=== PATIENT | female | born 2000 | race Caucasian/White ===

== ENCOUNTER → 2018-04-24 08:46 | Outpatient (CLI) | payer OTHER, SELFPAY ==
[2018-04-24 09:14] LABS: Influenza A and B by PCR Rapid Negative (Negative)
== END ==
PROVIDERS: Family Provider Family Medicine; PCP Family Medicine; Visit Provider Physician Assistant
DX: R68.89 Other general symptoms and signs (principal)
CPT/HCPCS: 87400

== ENCOUNTER → 2022-03-14 12:44 | Outpatient (CLI) | payer OTHER, MEDICAID, SELFPAY ==
[2022-03-19 06:06] LABS: HSV 1 DNA Negative (Negative); HSV 2 DNA Negative (Negative)
== END ==
PROVIDERS: Family Provider Family Medicine; PCP Family Medicine; Referring Provider Family Medicine; Visit Provider Family Medicine
DX: Z11.3 Encounter for screening for infections with a predominantly sexual mode of transmission (principal)
CPT/HCPCS: 36415; 87529

== ENCOUNTER 2022-06-06 21:50 | Emergency (ER) | payer OTHER, MEDICAID, SELFPAY ==
[2022-06-06 21:55] VITALS: BP 117/70; PULSE 85; RESP 20; TEMP 37; O2SAT 99; BMI 19.7
--- NOTE | 2022-06-06 22:40 | DI.RAD.S_ITS ---
PROCEDURE: XR CHEST 1V INDICATIONS: chest pain TECHNIQUE: One view of the chest was acquired. COMPARISON: None. FINDINGS: Surgical changes and devices: None. Lungs and pleura: Lungs are clear. No pleural effusions or pneumothorax. Mediastinum: Mediastinal contours appear normal. Heart size is normal. Bones and chest wall: No suspicious bony lesions. Overlying soft tissues appear unremarkable. IMPRESSION: 1. No acute cardiopulmonary disease. Dictated by: Ramon Hernandez M.D. on 06/06/2022 at 23:16 Approved by: Ramon Hernandez M.D. on 06/06/2022 at 23:17
--- NOTE | 2022-06-06 22:44 | ED_ITS ---
HPI - Arrhythmia/Palpitations General Chief Complaint: Anxiety Stated Complaint: Potential bat bite, Covid shot t-3, Palpitations Time Seen by Provider: 06/06/22 22:25 Source: patient Mode of arrival: Ambulatory History of Present Illness HPI narrative: 21-year-old female nonsmoker with history of depression and frequent heavy cannabis use presents with a chief complaint of feeling anxious with nausea and palpitations. She states that she is been working with her primary care provider to stop using cannabis and stopped cold turkey on Thursday and symptoms seemed to ramp up in the aftermath. She does have access to Ativan 0.5 mg p.o. which she has taken with some relief. She denies any nausea or vomiting. She has no fever or chills. She has no chest pain or shortness of breath. She does state also, that she had a bat flying in her room in the dark and is unsure if it bit her. She has never had a rabies series before Related Data Home Medications Medication Instructions Recorded Confirmed citalopram 10 mg tablet 10 mg PO QDAY ##0 01/09/16 03/11/22 ibuprofen 400 mg tablet 400 mg PO TID ##0 01/09/16 03/11/22 Previous Rx's Medication Instructions Recorded benzonatate 100 mg capsule 100 mg PO TID PRN cough #30 caps 04/24/18 (Shayna Quiñonez) ipratropium 20 mcg-albuterol 100 1 puff inhalation QID PRN wheezing 04/24/18 mcg/actuation mist for inhalation or shortness of breath #4 grams (Combivent Respimat) Allergies Allergy/AdvReac Type Severity Reaction Status Date / Time No Known Allergies Allergy Uncoded 03/11/22 14:05 Review of Systems Review of Systems Narrative: GENERAL: See HPI HEENT: Denies sinus pain, ear pain, sore throat, difficulty swallowing, dizziness. RESPIRATORY: See HPI CARDIOVASCULAR: See HPI GASTROINTESTINAL: Denies nausea, vomiting, abdominal pain, diarrhea, constipation, melena. : Denies dysuria, frequency, incontinence, hematuria, urinary retention. MUSCULOSKELETAL: denies weakness, joint pain, or bony pain SKIN: Denies rash, skin lesions, or other NEUROLOGIC: Denies weakness, headache, numbness, change in speech, confusion, seizures, incoordination. PSYCHIATRIC: See HPI 12 point review of systems is negative except for those stated above Patient History Social History Smoking Status: Never smoker Smoking Status: Never smoker Exam Narrative Exam Narrative: GENERAL: [21] year old patient appears stated age. Well-developed patient, in mild distress. HEAD: Atraumatic. Normocephalic. EYES: Pupils equal round and reactive. Extraocular motions intact. No scleral icterus. No injection or drainage. ENT: Nose without bleeding, purulent drainage. Throat without erythema, tonsillar hypertrophy or exudate. Airway patent. NECK: Trachea midline. Non tender CARDIOVASCULAR: Regular rate and rhythm without murmurs, gallops, or rubs. RESPIRATORY: Clear to auscultation. Breath sounds equal bilaterally. No wheezes, rales, or rhonchi. GASTROINTESTINAL: Abdomen soft, non-tender, nondistended. EXTREMITIES: No edema or joint tenderness. BACK: Nontender without deformity or crepitance. No flank tenderness. NEURO: AOx3. SKIN: No rash or erythema of visible areas Initial Vital Signs Initial Vital Signs: Vital Signs Temperature 98.6 F 06/06/22 21:55 Pulse Rate 85 06/06/22 21:55 Respiratory Rate 20 06/06/22 21:55 Blood Pressure 117/70 06/06/22 21:55 Pulse Oximetry 99 06/06/22 21:55 Oxygen Delivery Method Room Air 06/06/22 21:55 Course Orders Ordered: ED Orders 06/06/22 22:10 Urine Microscopic Stat 06/06/22 22:20 Complete Blood Count AUTO DIFF Stat Comprehensive Metabolic Panel Stat Lipase Stat Magnesium Stat PTT Partial Thromboplastin [place] Stat Prothrombin Time INR Stat Troponin & CK Cardiac Panel Stat 06/06/22 22:40 XR chest 1V Stat COVID19 -Nasal RAPID Stat EKG-12 Lead Stat 06/07/22 00:35 CRP [C-Reactive Protein Quant] Stat ESR [Erythrocyte Sedimentation Rate] Stat Discontinued Medications Aspirin (Aspirin 81 Mg Chew Tab) 324 mg PO NOW ONE Stop: 06/06/22 22:41 Last Admin: 06/06/22 23:16 Dose: Not Given Documented By: ABBY Sodium Chloride (Normal Saline 0.9%) 1,000 mls @ 1,000 mls/hr IV BOLUS ONE Stop: 06/07/22 02:18 Last Admin: 06/07/22 01:46 Dose: 1,000 mls/hr Documented By: PIA Lorazepam (Lorazepam 2 Mg/Ml Inj) 0.5 mg IV NOW ONE Stop: 06/07/22 01:20 Last Admin: 06/07/22 01:46 Dose: 0.5 mg Documented By: PIA Rabies Immune Globulin (Rabies Immune Globulin 300 Unit/Ml 1ml Vial) 1,043 unit 20 unit/kg (1043 unit) IM NOW ONE Stop: 06/06/22 23:00 Last Admin: 06/07/22 00:39 Dose: 1,043 unit Documented By: DOMINGO Rabies Vaccine (Rabies Vaccine (Rabavert) 2.5 Units Syringe) 2.5 units IM .ONCE ONE Stop: 06/06/22 23:00 Last Admin: 06/07/22 00:43 Dose: 2.5 units Documented By: DOMINGO Vital Signs Vital signs: Vital Signs - 8 hr 06/06/22 21:55 Temperature 98.6 F Pulse Rate 85 Respiratory Rate 20 Blood Pressure 117/70 Pulse Oximetry 99 Oxygen Delivery Method Room Air MDM - Arrhythmia/Palpitations Lab Data 06/06/22 22:20 06/06/22 22:20 Labs: Lab Results 06/06/22 06/06/22 06/06/22 Range/Units 22:10 22:20 22:20 WBC 7.9 (4.5-11.0) X10^3/uL RBC 4.30 (4.0-5.2) X10^6/uL Hgb 12.9 (12.0-16.0) g/dL Hct 38.4 (36-46) % MCV 89.3 (80-100) fL MCH 30.1 (26-34) PG MCHC 33.7 (30-36) % RDW 12.2 (11.6-14.8) % Plt Count 302 (150-400) X10^3/uL Neut % (Auto) 72.5 (50-75) % Lymph % (Auto) 22.2 L (25-40) % [place] % (Auto) 4.1 (3-14) % Eos % (Auto) 0.7 L (2-4) % Baso % (Auto) 0.5 (0-2) % Neut # (Auto) 5700 (0364-1603) /uL Lymph # (Auto) 1800 (1800-2874) /uL [place] # (Auto) 300 (0-900) /uL Eos # (Auto) 100 (0-450) /uL Baso # (Auto) 0 (0-100) /uL ESR (0-20) MM/HR PT 12.8 H (10.1-12.7) SECONDS INR 1.1 (0.9-1.3) APTT 33 (26-36) SECONDS Sodium (137-145) mmol/L Potassium (3.4-5.1) mmol/L Chloride (98-107) mmol/L Carbon Dioxide (22-32) mmol/L BUN (7-17) mg/dL Creatinine (0.52-1.04) mg/dL Estimated GFR (>60) mL/min BUN/Creatinine Ratio (6-22) Glucose (70-100) mg/dL Calcium (8.4-10.2) mg/dL Magnesium (1.6-2.3) mg/dL Total Bilirubin (0.2-1.3) mg/dL AST (14-36) IU/L ALT (<35) IU/L Alkaline Phosphatase (38-126) U/L Total Creatine Kinase (30-135) U/L CK-MB (CK-2) CK-MB (CK-2) Rel Index Troponin I (0.01-0.034) ng/mL C-Reactive Protein (<1.0) mg/dL Total Protein (6.3-8.2) g/dL Albumin (3.5-5.0) g/dL Globulin (1.7-4.1) g/dL Albumin/Globulin Ratio (1.0-2.8) Lipase (23-300) U/L Urine RBC None seen (0-5/HPF) Urine WBC None seen (0-5/HPF) Ur Squamous Epith Cells 0-1 /hpf (0-5/HPF) Urine Bacteria None seen (None) Ur Culture Indicated? Cult not indicated 06/06/22 06/06/22 06/06/22 Range/Units 22:20 22:20 22:20 WBC (4.5-11.0) X10^3/uL RBC (4.0-5.2) X10^6/uL Hgb (12.0-16.0) g/dL Hct (36-46) % MCV (80-100) fL MCH (26-34) PG MCHC (30-36) % RDW (11.6-14.8) % Plt Count (150-400) X10^3/uL Neut % (Auto) (50-75) % Lymph % (Auto) (25-40) % [place] % (Auto) (3-14) % Eos % (Auto) (2-4) % Baso % (Auto) (0-2) % Neut # (Auto) (1160-8647) /uL Lymph # (Auto) (6735-6147) /uL [place] # (Auto) (0-900) /uL Eos # (Auto) (0-450) /uL Baso # (Auto) (0-100) /uL ESR 12 (0-20) MM/HR PT (10.1-12.7) SECONDS INR (0.9-1.3) APTT (26-36) SECONDS Sodium 139 (137-145) mmol/L Potassium 3.6 (3.4-5.1) mmol/L Chloride 101 (98-107) mmol/L Carbon Dioxide 24 (22-32) mmol/L BUN 12 (7-17) mg/dL Creatinine 0.76 (0.52-1.04) mg/dL Estimated GFR > 60 (>60) mL/min BUN/Creatinine Ratio 15.8 (6-22) Glucose 94 (70-100) mg/dL Calcium 9.6 (8.4-10.2) mg/dL Magnesium 1.7 (1.6-2.3) mg/dL Total Bilirubin 0.5 (0.2-1.3) mg/dL AST 31 (14-36) IU/L ALT 27 (<35) IU/L Alkaline Phosphatase 65 (38-126) U/L Total Creatine Kinase 81 (30-135) U/L CK-MB (CK-2) TNP CK-MB (CK-2) Rel Index TNP Troponin I < 0.012 (0.01-0.034) ng/mL C-Reactive Protein 1.1 H (<1.0) mg/dL Total Protein 8.7 H (6.3-8.2) g/dL Albumin 5.1 H (3.5-5.0) g/dL Globulin 3.6 (1.7-4.1) g/dL Albumin/Globulin Ratio 1.4 (1.0-2.8) Lipase 85 (23-300) U/L Urine RBC (0-5/HPF) Urine WBC (0-5/HPF) Ur Squamous Epith Cells (0-5/HPF) Urine Bacteria (None) Ur Culture Indicated? Point of Care Testing Test Results Negative Urine Dip Bedside Urine Glucose Negative Bedside Urine Bilirubin - Negative Bedside Urine Ketone + 15 Urine Specific [place] 1.030 Bedside Urine Occult Blood - Negative Bedside Urine pH 6.0 Bedside Urine Protein - Negative Bedside Urine Urobilinogen - Negative Bedside Urine Nitrite - Negative Bedside Urine Leukocytes - Negative Esterase MDM Narrative Medical decision making narrative: [21] year old patient presents with anxiety and palpitations, likely a consequence cannabis withdrawal. Also possible exposure to bat Multiple etiologies for patient's symptoms considered including, but not limited to: [withdrawal, electrolyte abnormality versus other] Prior Charts reviewed in our EMR Primary Historian: patient Labs reviewed and interpreted by myself: No significant findings Imaging reviewed:NAP Patient's symptoms improved over duration of stay with above-stated therapies. Findings and discharge diagnosis discussed with patient/family followed by verbalization of understanding Return precautions discussed with patient/family whom verbalize understanding of diagnosis and plan Discharge Plan Departure Patient Disposition: Home Clinical Impression: Heart palpitations, Insomnia, Rabies, unspecified Instructions: Anxiety Disorders, DI for Rabies Vaccine Activity Restrictions/Additional Instructions: *You have been diagnosed with [palpitations and insomnia as well as possible rabies exposure due to bat] *What to do: *Please continue to take your regular medications as directed. * as we discussed you will need to get 3 follow-up administrations of the rabies vaccine: Dose 2: June 10 Dose 3: June 14 Dose 4: June 21 *Please follow up with your primary care provider in 2-3 days, call for an appointment. Let them know you were seen in the Emergency Department and that we ask that you be seen in follow up. We will electronically transmit a record of today's note if your PCP is in our system *If you do not have a primary care provider please contact the [facility] Resource line at [phone]. They will ask some questions about your medical history and help get you set up with a doctor in the community. *Return to Emergency Department if you should have any new, worsening or concerning symptoms, such as [fever greater than 101 F, shaking chills, worsening pain, persistent vomiting or other bothersome symptoms] Prescriptions: No Action benzonatate [Tessalon Perles] 100 mg capsule 100 mg PO TID PRN (Reason: cough) Qty: 30 0RF ipratropium-albuterol [Combivent Respimat] 20-100 mcg/actuation mist 1 puff INHALATION QID PRN (Reason: wheezing or shortness of breath) Qty: 4 0RF Rx Instructions: space evenly during waking hours citalopram 10 MG tablet 10 mg PO QDAY Qty: 0 ibuprofen 400 MG tablet 400 mg PO TID Qty: 0 Referrals: Thomas Del Rosario MD [Primary Care Provider] - Stand Alone Forms: Patient Portal/API
[2022-06-06 22:48] LABS: Add Manual Diff / Slide Review NO; Basophils Absolute Auto 0 /uL (0-100); Basophils Percent Auto 0.5 % (0-2); Eosinophils Absolute Auto 100 /uL (0-450); Eosinophils Percent Auto 0.7 % (2-4); Hematocrit 38.4 % (36-46); Hemoglobin 12.9 g/dL (12.0-16.0); Lymphocytes Absolute Auto 1800 /uL (1100-4500); Lymphocytes Percent Auto 22.2 % (25-40); Mean Corpuscular HGB Conc 33.7 % (30-36); Mean Corpuscular Hemoglobin 30.1 PG (26-34); Mean Corpuscular Volume 89.3 fL (80-100); Monocytes Absolute Auto 300 /uL (0-900); Monocytes Percent Auto 4.1 % (3-14); Neutrophils Absolute Auto 5700 /uL (1500-7000); Neutrophils Percent Auto 72.5 % (50-75); Platelet Count 302 X10^3/uL (150-400); Red Cell Distribution Width 12.2 % (11.6-14.8); White Blood Cell Count 7.9 X10^3/uL (4.5-11.0)
[2022-06-06 22:50] LABS: INR 1.1 (0.9-1.3); Prothrombin Time 12.8 SECONDS (10.1-12.7)
[2022-06-06 22:53] LABS: PTT Partial Thromboplastin Tim 33 SECONDS (26-36)
[2022-06-06 22:55] LABS: Alanine Aminotransferase 27 IU/L (<35); Albumin 5.1 g/dL (3.5-5.0); Albumin Globulin Ratio 1.4 (1.0-2.8); Alkaline Phosphatase 65 U/L (38-126); Aspartate Aminotransferase 31 IU/L (14-36); BUN Creatinine Ratio 15.8 (6-22); Bilirubin Total 0.5 mg/dL (0.2-1.3); Blood Urea Nitrogen 12 mg/dL (7-17); Calcium 9.6 mg/dL (8.4-10.2); Carbon Dioxide 24 mmol/L (22-32); Chloride 101 mmol/L (98-107); Creatine Kinase 81 U/L (30-135); Estimated Glomerular Filt Rate > 60 mL/min (>60); Globulin 3.6 g/dL (1.7-4.1); Glucose 94 mg/dL (70-100); HEMOLYSIS < 15 (0-50); Lipase 85 U/L (23-300); Magnesium 1.7 mg/dL (1.6-2.3); Potassium 3.6 mmol/L (3.4-5.1); Sodium 139 mmol/L (137-145); Total Protein 8.7 g/dL (6.3-8.2)
[2022-06-06 23:07] LABS: Bacteria Urine None Seen; Culture Indicated Urine Cult Not Indicated; RBC Urine None Seen (0-5/HPF); Squamous Epithelial Cell Urine 0-1 /HPF (0-5/HPF); WBC Urine None Seen (0-5/HPF)
[2022-06-06 23:07] LABS: Troponin I < 0.012 ng/mL (0.01-0.034)
[2022-06-07] MEDS: RABIES IMMUNE GLOBULIN 300 UNIT/ML 1mL VIAL 1043 UNIT IM (00:39)
[2022-06-07] MEDS: RABIES VACCINE (RABAVERT) 2.5 UNITS SYRINGE IM (00:43)
[2022-06-07 00:55] LABS: C-Reactive Protein Quant 1.1 mg/dL (<1.0)
[2022-06-07 01:05] LABS: Erythrocyte Sedimentation Rate 12 MM/HR (0-20)
[2022-06-07] MEDS: LORazepam 2 MG/ML INJ 0.5 MG IV (01:46)
[2022-06-07] MEDS: SODIUM CHLORIDE 0.9% 1,000 ML 1000 ML IV (01:46)
[2022-06-07 03:21] VITALS: BP 115/68; PULSE 80; RESP 18; TEMP 36.9; O2SAT 99
== END 2022-06-07 03:24 | disposition home or self-care (01) ==
PROVIDERS: Emergency Provider Emergency Medicine; Family Provider Family Medicine; PCP Family Medicine
DX: F12.23 Cannabis dependence with withdrawal (principal); R00.2 Palpitations; G47.00 Insomnia, unspecified; R07.9 Chest pain, unspecified; Z20.3 Contact with and (suspected) exposure to rabies; Z23 Encounter for immunization
CPT/HCPCS: 36415; 71045; 80053; 81003; 81015; 81025; 82550; 83690; 83735; 84484; 85025; 85610; 85651; 85730; 86140; 90375; 90471; 90675; 93005; 93010; 96361; 96372; 96374; 99284; J2060

== ENCOUNTER 2022-06-10 12:47 | Emergency (ER) | payer OTHER, MEDICAID, SELFPAY ==
[2022-06-10 12:56] VITALS: BP 119/80; PULSE 77; RESP 16; TEMP 36.9; O2SAT 100; BMI 19.7
[2022-06-10] MEDS: RABIES VACCINE (RABAVERT) 2.5 UNITS SYRINGE IM (13:30)
[2022-06-10 13:37] VITALS: BP 136/85; PULSE 78; O2SAT 96
--- NOTE | 2022-06-16 19:54 | ED.RECABL ---
HPI - Recheck/Abnormal Lab/Rx <Christina Mendes PA-C - Last Filed: 06/16/22 19:59> General Chief Complaint: Recheck/Abnormal Lab/Rx Stated Complaint: Back for second Rabies shots Time Seen by Provider: 06/10/22 13:01 Source: patient Mode of arrival: Ambulatory History of Present Illness HPI narrative: 21-year-old female presents to the ED for the 2nd rabies vaccine. Patient denies any symptoms since the exposure. Deniesover salivation, disorientation, confusion, over excitability, muscle cramps or contractions. Related Data Home Medications Medication Instructions Recorded Confirmed citalopram 10 mg tablet 10 mg PO QDAY ##0 01/09/16 03/11/22 ibuprofen 400 mg tablet 400 mg PO TID ##0 01/09/16 03/11/22 Previous Rx's Medication Instructions Recorded benzonatate 100 mg capsule 100 mg PO TID PRN cough #30 caps 04/24/18 (Shayna Quiñonez) ipratropium 20 mcg-albuterol 100 1 puff inhalation QID PRN wheezing 04/24/18 mcg/actuation mist for inhalation or shortness of breath #4 grams (Combivent Respimat) Allergies Allergy/AdvReac Type Severity Reaction Status Date / Time No Known Drug Allergies Allergy Verified 06/14/22 11:02 Review of Systems <Christina Mendes PA-C - Last Filed: 06/16/22 19:59> Review of Systems ROS Unobtainable: All systems reviewed & are unremarkable except as noted in HPI and below Constitutional Constitutional: Denies chills, Denies fatigue, Denies fever(s), Denies frequent falls, Denies lethargy and Denies weakness Eyes Eyes: Denies change in vision, Denies eye discharge, Denies irritation and Denies loss of vision ENT Ears, Nose, Mouth, and Throat: Denies change in voice, Denies dizziness, Denies neck pain, Denies sore throat and Denies throat swelling Cardiovascular Cardiovascular: Denies chest pain, Denies irregular heart rhythm, Denies lightheadedness, Denies palpitations, Denies dyspnea, Denies dyspnea on exertion and Denies orthopnea Respiratory Respiratory: Denies cough, Denies dyspnea, Denies dyspnea on exertion and Denies wheezing Gastrointestinal Gastrointestinal: Denies abdominal pain, Denies change in bowel habits, Denies diarrhea, Denies nausea and Denies vomiting Genitourinary Genitourinary: Denies hematuria, Denies flank pain, Denies urinary incontinence and Denies urinary urgency Musculoskeletal Musculoskeletal: Denies back pain, Denies muscle weakness, Denies neck pain, Denies numbness and Denies tingling Integumentary/Breasts Skin/Breast: Denies pruritus, Denies erythema, Denies rash and Denies wounds Neurologic Neurologic: Denies behavioral changes, Denies confusion, Denies dizziness, Denies frequent falls, Denies loss of vision, Denies numbness, Denies tingling and Denies weakness Psychiatric Psychiatric: Denies anxiety, Denies behavioral changes, Denies confusion, Denies depression, Denies homicidal ideation and Denies suicidal ideation Endocrine Endocrine: Denies fatigue, Denies flushing and Denies palpitations Hematologic/Lymphatic Hematologic/Lymphatic: Denies easy bruising Allergic/Immunologic Allergic/Immunologic: Denies urticaria, Denies throat swelling and Denies wheezing Patient History <Christina Mendes PA-C - Last Filed: 06/16/22 19:59> Social History Smoking Status: Never smoker Smoking Status: Never smoker Substance Use Type: does not use Exam <Christina Mendes PA-C - Last Filed: 06/16/22 19:59> Narrative Exam Narrative: Const General:?cooperative, healthy appearing and comfortable [facility] Head:?normal to inspection Ears:?hearing grossly normal bilaterally Nose:?external nose normal Face and sinus:?normal facial exam and sinuses nontender Mouth:?oral mucosae normal Throat:?posterior oropharynx normal Eyes General:?appearance normal, both eyes and all related structures Neck Neck:?normal visual inspection and no lymphadenopathy noted Resp Effort & Inspection:?normal respiratory effort Auscultation:?clear to auscultation bilaterally Cardio Rate:?regular rate Rhythm:?regular rhythm Neuro General:?patient alert, patient awake and patient oriented x3 Initial Vital Signs Initial Vital Signs: Vital Signs Temperature 98.5 F 06/10/22 12:56 Pulse Rate 77 06/10/22 12:56 Respiratory Rate 16 06/10/22 12:56 Blood Pressure 119/80 06/10/22 12:56 Pulse Oximetry 100 06/10/22 12:56 Oxygen Delivery Method Room Air 06/10/22 12:56 <James Navarro MD - Last Filed: 06/22/22 20:56> Initial Vital Signs Initial Vital Signs: Vital Signs Temperature 98.5 F 06/10/22 12:56 Pulse Rate 77 06/10/22 12:56 Respiratory Rate 16 06/10/22 12:56 Blood Pressure 119/80 06/10/22 12:56 Pulse Oximetry 100 06/10/22 12:56 Oxygen Delivery Method Room Air 06/10/22 12:56 Course <Christina Mendes PA-C - Last Filed: 06/16/22 19:59> Orders Ordered: Discontinued Medications Rabies Vaccine (Rabies Vaccine (Rabavert) 2.5 Units Syringe) 2.5 units IM .ONCE ONE Stop: 06/10/22 12:54 Last Admin: 06/10/22 13:30 Dose: 2.5 units Documented By: RLS <James Navarro MD - Last Filed: 06/22/22 20:56> Orders Ordered: Discontinued Medications Rabies Vaccine (Rabies Vaccine (Rabavert) 2.5 Units Syringe) 2.5 units IM .ONCE ONE Stop: 06/10/22 12:54 Last Admin: 06/10/22 13:30 Dose: 2.5 units Documented By: RLS MDM - Recheck/Abnormal Lab/Rx <Christina Mendes PA-C - Last Filed: 06/16/22 19:59> MDM Narrative Medical decision making narrative: 21-year-old female presents to the ED for the 2nd rabies vaccine. physical exam and history are reassuring. Patient was given the 2nd rabies vaccine today. The next shots will be on June 14 and June 21 respectively. ED return precautions were discussed with patient. Patient verbalized understanding. Medical records reviewed: Yes Discharge Plan Departure Patient Disposition: Home Clinical Impression: Rabies exposure Instructions: DI for Rabies Vaccine Activity Restrictions/Additional Instructions: You were seen in the ED for a 2nd dose of the rabies vaccine. It is reassuring that you have had no symptoms since the exposure. You were given the 2nd dose today. You will need to get dose 3 and dose for on June 14 and June 21 respectively. Return to the ED if you note any signs of over salivation, disorientation, confusion, over excitability, muscle cramps or contractions. Prescriptions: No Action benzonatate [Tessalon Perles] 100 mg capsule 100 mg PO TID PRN (Reason: cough) Qty: 30 0RF ipratropium-albuterol [Combivent Respimat] 20-100 mcg/actuation mist 1 puff INHALATION QID PRN (Reason: wheezing or shortness of breath) Qty: 4 0RF Rx Instructions: space evenly during waking hours citalopram 10 MG tablet 10 mg PO QDAY Qty: 0 ibuprofen 400 MG tablet 400 mg PO TID Qty: 0 Referrals: Thomas Del Rosario MD [Primary Care Provider] - Stand Alone Forms: Patient Portal/API <James Navarro MD - Last Filed: 06/22/22 20:56> Cosign ED Attending Cosignature Attestation: I was immediately available in the department for consultation. This documentation has been reviewed and I agree with assessment and plan. Supervised by James Navarro MD
== END 2022-06-10 13:48 | disposition home or self-care (01) ==
PROVIDERS: Emergency Provider Student in an Organized Health Care Education/Training Program; Family Provider Family Medicine; PCP Family Medicine
DX: Z20.3 Contact with and (suspected) exposure to rabies (principal); Z23 Encounter for immunization
CPT/HCPCS: 90471; 90675; 99283

== ENCOUNTER 2022-06-14 10:59 | Emergency (ER) | payer OTHER, MEDICAID, SELFPAY ==
[2022-06-14 11:04] VITALS: BP 114/74; PULSE 72; RESP 14; TEMP 36.3; O2SAT 99
[2022-06-14] MEDS: RABIES VACCINE (RABAVERT) 2.5 UNITS SYRINGE IM (11:08)
--- NOTE | 2022-06-14 11:11 | ED.RECABL ---
HPI - Recheck/Abnormal Lab/Rx General Chief Complaint: Recheck/Abnormal Lab/Rx Stated Complaint: 3rd rabies shot Time Seen by Provider: 06/14/22 11:09 Source: patient Mode of arrival: Ambulatory History of Present Illness HPI narrative: This is a 21-year-old female with history of depression and THC use who presents for re-evaluation of having exposure to bat flying in her room after dark and unsure if it was bit. She had not had rabies series before. She had rabies immune globulin on the as well as the vaccine and represents today for dose #2 of her treatment. Patient states no issues or other concerns at this time. Related Data Home Medications Medication Instructions Recorded Confirmed citalopram 10 mg tablet 10 mg PO QDAY ##0 01/09/16 03/11/22 ibuprofen 400 mg tablet 400 mg PO TID ##0 01/09/16 03/11/22 Previous Rx's Medication Instructions Recorded benzonatate 100 mg capsule 100 mg PO TID PRN cough #30 caps 04/24/18 (Shayna Quiñonez) ipratropium 20 mcg-albuterol 100 1 puff inhalation QID PRN wheezing 04/24/18 mcg/actuation mist for inhalation or shortness of breath #4 grams (Combivent Respimat) Allergies Allergy/AdvReac Type Severity Reaction Status Date / Time No Known Drug Allergies Allergy Verified 06/14/22 11:02 Review of Systems Review of Systems ROS Unobtainable: All systems reviewed & are unremarkable except as noted in HPI and below Patient History Social History Smoking Status: Never smoker Smoking Status: Never smoker Substance Use Type: does not use Exam Narrative Exam Narrative: GENERAL: Alert and oriented x three, well-appearing female in mild distress. HEENT: Head normocephalic, atraumatic, EOMI, pupils reactive, face symmetric, moist mucous membranes NECK: Supple, full range of motion EXTREMITIES: Normal range of motion. NEUROLOGICAL: Cranial nerves II through XII grossly intact. Normal gait. SKIN: Warm, dry, no petechiae, no rashes or lesions. Initial Vital Signs Initial Vital Signs: Vital Signs Temperature 97.4 F L 06/14/22 11:04 Pulse Rate 72 06/14/22 11:04 Respiratory Rate 14 06/14/22 11:04 Blood Pressure 114/74 06/14/22 11:04 Pulse Oximetry 99 06/14/22 11:04 Oxygen Delivery Method Room Air 06/14/22 11:04 Course Orders Ordered: Discontinued Medications Rabies Vaccine (Rabies Vaccine (Rabavert) 2.5 Units Syringe) 2.5 units IM .ONCE ONE Stop: 06/14/22 11:02 Last Admin: 06/14/22 11:08 Dose: 2.5 units Documented By: NETTIE Vital Signs Vital signs: Vital Signs - 8 hr 06/14/22 11:04 Temperature 97.4 F L Pulse Rate 72 Respiratory Rate 14 Blood Pressure 114/74 Pulse Oximetry 99 Oxygen Delivery Method Room Air MDM - Recheck/Abnormal Lab/Rx MDM Narrative Medical decision making narrative: 21-year-old female presenting for her next dose of rabies vaccination. Patient states she is been doing well she is no other complaints or concerns. Plan to return for her 4th shot on on June 21. Patient has not had any reactions or issues no other concerning symptoms. Discharge Plan Departure Patient Disposition: Home Clinical Impression: Rabies exposure Instructions: DI for Rabies Vaccine Activity Restrictions/Additional Instructions: Please follow-up for administration of your next rabies vaccination. Dose 4: June 21 Please return if you have any other new or concerning changes or symptoms. Prescriptions: No Action benzonatate [Tessalon Perles] 100 mg capsule 100 mg PO TID PRN (Reason: cough) Qty: 30 0RF ipratropium-albuterol [Combivent Respimat] 20-100 mcg/actuation mist 1 puff INHALATION QID PRN (Reason: wheezing or shortness of breath) Qty: 4 0RF Rx Instructions: space evenly during waking hours citalopram 10 MG tablet 10 mg PO QDAY Qty: 0 ibuprofen 400 MG tablet 400 mg PO TID Qty: 0 Referrals: Thomas Del Rosario MD [Primary Care Provider] - Stand Alone Forms: Patient Portal/API
== END 2022-06-14 11:40 | disposition home or self-care (01) ==
PROVIDERS: Emergency Provider Emergency Medicine; Family Provider Family Medicine; PCP Family Medicine
DX: Z20.3 Contact with and (suspected) exposure to rabies (principal); Z23 Encounter for immunization
CPT/HCPCS: 90471; 90675; 99282; 99283

== ENCOUNTER 2022-06-23 13:56 | Emergency (ER) | payer OTHER, MEDICAID, SELFPAY ==
[2022-06-23 14:19] VITALS: BP 127/70; PULSE 70; RESP 14; TEMP 36.4; O2SAT 99
[2022-06-23] MEDS: RABIES VACCINE (RABAVERT) 2.5 UNITS SYRINGE IM (14:34)
--- NOTE | 2022-06-23 14:51 | ED.RECABL ---
HPI - Recheck/Abnormal Lab/Rx General Chief Complaint: Recheck/Abnormal Lab/Rx Stated Complaint: last round of rabies shot Time Seen by Provider: 06/23/22 14:51 Source: patient Mode of arrival: Ambulatory Limitations: no limitations History of Present Illness HPI narrative: This is a 21-year-old female with history of depression and THC use who presents for re-evaluation of having exposure to bat flying in her room after dark and unsure if it was bit.? She had not had rabies series before.? She had rabies immune globulin on the as well as the vaccine, patient has had her additional vaccines and re-presents today for dose #4 of her treatment.? Patient states no issues or other concerns at this time. Related Data Home Medications Medication Instructions Recorded Confirmed citalopram 10 mg tablet 10 mg PO QDAY ##0 01/09/16 03/11/22 ibuprofen 400 mg tablet 400 mg PO TID ##0 01/09/16 03/11/22 Previous Rx's Medication Instructions Recorded benzonatate 100 mg capsule 100 mg PO TID PRN cough #30 caps 04/24/18 (Shayna Quiñonez) ipratropium 20 mcg-albuterol 100 1 puff inhalation QID PRN wheezing 04/24/18 mcg/actuation mist for inhalation or shortness of breath #4 grams (Combivent Respimat) Allergies Allergy/AdvReac Type Severity Reaction Status Date / Time No Known Drug Allergies Allergy Verified 06/14/22 11:02 Review of Systems Review of Systems ROS Unobtainable: All systems reviewed & are unremarkable except as noted in HPI and below Patient History Social History Smoking Status: Never smoker Smoking Status: Never smoker Substance Use Type: does not use Exam Narrative Exam Narrative: GENERAL: Alert and oriented x three, well-nourished female in no acute distress. HEENT: Head normocephalic, atraumatic, EOMI, pupils reactive, face symmetric, moist mucous membranes NECK: Supple, full range of motion CARDIOVASCULAR: Regular rate and rhythm without murmurs, rubs or gallops. RESPIRATORY: Breath sounds equal bilaterally, no wheezes rales or rhonchi. EXTREMITIES: Normal range of motion, no edema. Neurovascularly intact NEUROLOGICAL: Cranial nerves II through XII grossly intact. Moving all extremities SKIN: Warm, dry, no petechiae, no rashes or lesions. Initial Vital Signs Initial Vital Signs: Vital Signs Temperature 97.5 F L 06/23/22 14:19 Pulse Rate 70 06/23/22 14:19 Respiratory Rate 14 06/23/22 14:19 Blood Pressure 127/70 06/23/22 14:19 Pulse Oximetry 99 06/23/22 14:19 Oxygen Delivery Method Room Air 06/23/22 14:19 Course Orders Ordered: Discontinued Medications Rabies Vaccine (Rabies Vaccine (Rabavert) 2.5 Units Syringe) 2.5 units IM .ONCE ONE Stop: 06/23/22 14:09 Last Admin: 06/23/22 14:34 Dose: 2.5 units Documented By: NETTIE Vital Signs Vital signs: Vital Signs - 8 hr 06/23/22 14:19 Temperature 97.5 F L Pulse Rate 70 Respiratory Rate 14 Blood Pressure 127/70 Pulse Oximetry 99 Oxygen Delivery Method Room Air MDM - Recheck/Abnormal Lab/Rx MDM Narrative Medical decision making narrative: This is a 21-year-old female who presents for her last vaccine for rabies after having exposure. Patient has had appropriate immunoglobulin has re-presented for each series of her vaccine. Patient does not have any other additional concerns or issues today. Discharge Plan Departure Patient Disposition: Home Clinical Impression: Encounter for repeat administration of rabies vaccination Activity Restrictions/Additional Instructions: You have completed your rabies exposure vaccines, I hope you have a good week. Prescriptions: No Action benzonatate [Tessalon Perles] 100 mg capsule 100 mg PO TID PRN (Reason: cough) Qty: 30 0RF ipratropium-albuterol [Combivent Respimat] 20-100 mcg/actuation mist 1 puff INHALATION QID PRN (Reason: wheezing or shortness of breath) Qty: 4 0RF Rx Instructions: space evenly during waking hours citalopram 10 MG tablet 10 mg PO QDAY Qty: 0 ibuprofen 400 MG tablet 400 mg PO TID Qty: 0 Referrals: Thomas Del Rosario MD [Primary Care Provider] - Stand Alone Forms: Patient Portal/API
== END 2022-06-23 14:59 | disposition home or self-care (01) ==
PROVIDERS: Emergency Provider Emergency Medicine; Family Provider Family Medicine; PCP Family Medicine
DX: Z20.3 Contact with and (suspected) exposure to rabies (principal); Z23 Encounter for immunization
CPT/HCPCS: 90471; 90675; 99283